=== PATIENT | male | born 1945 | race Caucasian/White ===

== ENCOUNTER → 2017-01-03 | Outpatient (CLI) | payer MEDICARE, OTHER ==
--- NOTE | 2017-01-04 15:59 | RAD ---
EXAM DESCRIPTION: XR ABDOMEN 1 VIEW (KUB) CLINICAL HISTORY: KIDNEY STONES COMPARISON: February 23, 2016 TECHNIQUE: KUB FINDINGS: There is an unremarkable bowel gas pattern. No obstruction or ileus is evident. No soft tissue masses or unusual calcifications are noted. Previously noted calculus overlying the lower pole left kidney is no longer evident. Age appropriate bony degenerative changes are present. IMPRESSION: Normal examination Electronically signed by: Sohan Ball MD 01/04/2017 3:58 PM CDT
== END ==
LOC: RAD 13:35
PROVIDERS: ATTEND Urology
DX: N20.0 Calculus of kidney (principal)

== ENCOUNTER 2017-08-24 15:21 | Emergency (ER) | payer MEDICARE, OTHER ==
[2017-08-24] MEDS ORDERED: NITROGLYCERIN 0.4 MG 25 EA TAB SL ONE (15:25)
[2017-08-24] MEDS ORDERED: ASPIRIN (CHEWABLE) 81 MG TAB ONE (15:25)
[2017-08-24 15:28] VITALS: TEMP 98.5
[2017-08-24] MEDS: NITROGLYCERIN 0.4 MG 25 EA TAB SL ONE ×3 (15:29→15:51)
[2017-08-24] MEDS ORDERED: ASPIRIN (CHEWABLE) 81 MG TAB PO ONE (15:30)
--- NOTE | 2017-08-24 15:51 | RAD ---
EXAM DESCRIPTION: Chest,1 View CLINICAL HISTORY: chest pain COMPARISON: 10 March 2012 TECHNIQUE: AP portable chest FINDINGS: Mild chronic elevation of the left hemidiaphragm is observed. The lungs are clear. The heart is within range of normal. IMPRESSION: Chronic elevation of left hemidiaphragm is observed. I see no acute cardiopulmonary pathology. Electronically signed by: Eliel Cueto MD 08/24/2017 3:50 PM CDT
--- NOTE | 2017-08-24 15:54 | ED.PDOC ---
History of Present Illness - General Chief Complaint: Chest Pain/UT Stated Complaint: chest pain Time Seen by Provider: 08/24/17 15:51 Source: patient, family Exam Limitations: no limitations - History of Present Illness Initial Comments: PT PRESENTS TO THE ED WITH COMPLAINT OF LEFT SIDED CHEST TIGHTNESS WITH RADIATION DOWN THE LEFT ARM. PT REPORTS THAT PAIN BEGAN APPROXIMATELY 30MINS PRIOR TO ARRIVAL WHILE HE WAS DRIVING. 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 HE STATES THAT PAIN RESOLVED AFTER RESTING. TODAYS PAIN HAS BEEN CONSTANT AND RATES IT AT A 7/10. Timing/Duration: 1/2 hour Severity/Quality: tightness Location: substernal Chest Pain Radiation: arms Activities at Onset: other - DRIVING Prior Chest Pain/Cardiac Workup: thallium scan - A FEW YEARS AGO THAT DEMONSTRATED CARDIAC DISEASE Improving Factors: nothing Nitro Today/Relief: no nitro taken today Aspirin Treatment Today: no aspirin today Associated Symptoms: denies symptoms Allergies/Adverse Reactions: Allergies Codeine Allergy (Intermediate, Unverified 03/26/16 12:20) Other Causes itching Aspirin Adverse Reaction (Verified 03/26/16 12:20) Other tinnitus Home Medications: Ambulatory Orders Simvastatin [Zocor] 40 mg PO DAILY 03/10/12 Dutasteride [Avodart] 0.5 mg PO .Q3DAYS 03/26/16 Ketorolac Tromethamine [Toradol Tabs] 10 mg PO Q6HR PRN #20 tab 03/26/16 Meloxicam 15 mg PO .Q3DAYS 03/26/16 Metoprolol Tartrate 25 mg PO DAILY 08/24/17 Tamsulosin [Flomax] 0.4 mg PO JOHN-OTH-DAY 08/24/17 Review of Systems - Review of Systems Constitutional: Denies: chills, fever EENTM: Denies: blurred vision, double vision Respiratory: Denies: cough, short of breath Cardiology: States: see HPI, chest pain. Denies: palpitations Gastrointestinal/Abdominal: Denies: abdominal pain, nausea, vomiting Musculoskeletal: Denies: back pain, joint swelling Skin: Denies: change in color, lesions Neurological: Denies: headache, paresthesia Endocrine: States: no symptoms reported Hematologic/Lymphatic: States: no symptoms reported Past Medical History (General) - Patient Medical History Hx Seizures: No Hx Stroke: No Hx Asthma: No Hx of COPD: No Hx Cardiac Disorders: Yes - CAD Hx Congestive Heart Failure: No Hx Pacemaker: No Hx Hypertension: Yes Hx Diabetes: No Hx Renal Disease: No - Hx 2 episodes of kidney stones Hx MRSA: No Hx Other - free text: HYPERLIPIDEMIA Surgical History: cholecystectomy, other - Vaccination History Hx Influenza Vaccination: Yes - 2015 Hx Pneumococcal Vaccination: Yes - 2014 - Social History Hx Tobacco Use: No - FORMER Hx Alcohol Use: No Hx Substance Use: No Hx Physical Abuse: No Hx Emotional Abuse: No Family Medical History - Family History Father Living Status: Hx Cardiac Disease: Yes Hx Family Diabetes: Yes Physical Exam - Physical Exam General Appearance: Alert, Well Developed, Well Groomed, Well Hydrated, Well Nourished, Other - APPEARS UNCOMFORTABLE Eyes, Ears, Nose, Throat Exam: PERRL/EOMI, normal ENT inspection Neck: full range of motion, supple Respiratory: lungs clear, normal breath sounds, no respiratory distress Cardiovascular/Chest: regular rate, rhythm, no murmur Gastrointestinal/Abdominal: non tender, soft Neurologic: alert, normal mood/affect, oriented x 3 Skin Exam: normal color, warm/dry Progress - Progress Progress: 08/24/17 16:20 PT REPORTS NO IMPROVEMENT AFTER 3 SL NTG IN THE ED. 08/24/17 16:43 PT REPORTS THAT PAIN IS IMPROVED AFTER 4MG IV MORPHINE BUT NOW COMPLAINS OF NAUSEA. ZOFRAN ORDERED. - EKG/XRAY/CT EKG: Sinus - @64BPM, NL INTERVALS, NL AXIS, no ST T wave changes - NO OLD EKG FOR COMPARISION Departure - Departure Clinical Impression: Chest pain Time of Disposition: 16:44 Disposition: Transfer to Hospital Condition: Fair Departure Forms: ED Discharge - Pt. Copy, Patient Portal Self Enrollment Instructions: DI for Chest Pain Referrals: Carlos Ackerman MD [Primary Care Provider] - 1-2 Weeks Home Medications: Ambulatory Orders Simvastatin [Zocor] 40 mg PO DAILY 03/10/12 Dutasteride [Avodart] 0.5 mg PO .Q3DAYS 03/26/16 Ketorolac Tromethamine [Toradol Tabs] 10 mg PO Q6HR PRN #20 tab 03/26/16 Meloxicam 15 mg PO .Q3DAYS 03/26/16 Metoprolol Tartrate 25 mg PO DAILY 08/24/17 Tamsulosin [Flomax] 0.4 mg PO JOHN-OTH-DAY 08/24/17 Transfer to Outside Facility - Transfer Information Accepting Provider:: DR. GONZALEZ (CDU) Accepting Facility: [facility] Reason for Transfer: required specialist not available - CARDIOLOGY
[2017-08-24] MEDS ORDERED: MORPHINE SULFATE INJ 10 MG/ML VIAL IV ONE (16:31)
[2017-08-24] MEDS ORDERED: ONDANSETRON INJ 4 MG/2 ML VIAL IV ONE (16:39)
[2017-08-24 17:28] VITALS: BP 113/62; O2SAT 93
== END 2017-08-24 17:15 | disposition short-term general hospital (02) ==
LOC: ER 15:21
DX: R07.9 Chest pain, unspecified (principal); I25.10 Atherosclerotic heart disease of native coronary artery without angina pectoris; I10 Essential (primary) hypertension; E78.5 Hyperlipidemia, unspecified; Z87.891 Personal history of nicotine dependence
CPT/HCPCS: 36415; 71045; 80048; 80076; 82550; 82553; 83880; 84484; 85025; 85610; 85730; 93005; J2270; J2405

== ENCOUNTER → 2017-12-12 | Outpatient (CLI) | payer MEDICARE, OTHER ==
--- NOTE | 2017-12-12 14:50 | RAD ---
EXAM DESCRIPTION: XR ABDOMEN 1 VIEW (KUB) CLINICAL HISTORY: KIDNEY STONES COMPARISON: January 03, 2017 TECHNIQUE: KUB FINDINGS: There is an unremarkable bowel gas pattern. No obstruction or ileus is evident. No soft tissue masses or unusual calcifications are noted. No definite renal calculi overlying the either kidney are identified. Age appropriate bony degenerative changes are present. IMPRESSION: Normal examination Electronically signed by: Sohan Ball MD 12/12/2017 2:48 PM CDT
== END ==
LOC: RAD 13:24
PROVIDERS: ATTEND Urology
DX: N20.0 Calculus of kidney (principal)

== ENCOUNTER → 2018-04-17 | Outpatient (CLI) | payer MEDICARE, OTHER ==
--- NOTE | 2018-04-17 16:33 | RAD ---
EXAM DESCRIPTION: KUB CLINICAL HISTORY: 72 years Male, KIDNEY STONES COMPARISON: December 12, 2017 FINDINGS: There are several tiny pelvic calcifications, but no left or right-sided urinary tract calculus is identified. The superior poles of the kidneys are not included. The bowel gas pattern is nonobstructed. No concerning bone lesion. IMPRESSION: No radiographically apparent urinary tract calculus, only slightly limited as described above. Electronically signed by: Deacon King MD 04/17/2018 4:31 PM [facility]
== END ==
LOC: RAD 14:08
PROVIDERS: ATTEND Urology
DX: N20.0 Calculus of kidney (principal)

== ENCOUNTER → 2018-04-27 | Outpatient (CLI) | payer MEDICARE, OTHER | LOC: GMAJ 10:54 | PROVIDERS: ATTEND Family Medicine | DX: E55.9 Vitamin D deficiency, unspecified (principal); Z12.5 Encounter for screening for malignant neoplasm of prostate | CPT/HCPCS: 82306; G0103 ==

== ENCOUNTER 2018-10-11 15:44 | Emergency (ER) | payer MEDICARE, OTHER ==
[2018-10-11] MEDS ORDERED: SODIUM CHLORIDE 0.9% 1000ML 1,000 ML IVS ONE (16:27)
[2018-10-11] MEDS ORDERED: KETOROLAC TROMETHAMINE INJ 30 MG/ML VIAL IV ONE (16:27)
[2018-10-11] MEDS ORDERED: ORPHENADRINE CITRATE 30 MG/ML AMP IM ONE (16:27)
--- NOTE | 2018-10-11 16:32 | ED.PDOC ---
History of Present Illness - General Chief Complaint: Abdominal Pain Time Seen by Provider: 10/11/18 16:20 Source: patient Exam Limitations: no limitations - History of Present Illness Initial Comments: C/O BACK PAIN ONSET 3 DAYS AGO BUT HAS GOTTEN MUCH WORSE TODAY. HX OF KIDNEY STONES. THIS IS IN THE L FLANK BUT IS DIFFERENT IN THAT THERE IS SIGNIFICANT INCREASE IN PAIN WITH MOVEMENT. Timing/Duration: other - 3 DAYS Severity: moderate Improving Factors: nothing Worsening Factors: movement Allergies/Adverse Reactions: Allergies NO KNOWN ALLERGY Allergy (Verified 10/11/18 16:09) Home Medications: Ambulatory Orders Simvastatin [Zocor] 40 mg PO DAILY 03/10/12 Metoprolol Tartrate 25 mg PO DAILY 08/24/17 Tamsulosin [Flomax] 0.4 mg PO JOHN-OTH-DAY 08/24/17 Aspirin [Aspirin Childrens] 81 mg PO DAILY 10/11/18 Cyclobenzaprine HCl [Flexeril] 10 mg PO TID PRN #15 tab 10/11/18 Finasteride [Proscar] 5 mg PO JOHN-OTH-DAY 10/11/18 Gabapentin [Neurontin] 900 mg PO DAILY 10/11/18 Indomethacin 50 mg PO TID PRN #14 cap 10/11/18 raNITIdine HCL [Zantac] 150 mg PO DAILY 10/11/18 Review of Systems - Review of Systems Constitutional: Denies: chills, fever EENTM: States: no symptoms reported Respiratory: Denies: cough, short of breath Cardiology: Denies: chest pain, palpitations Gastrointestinal/Abdominal: Denies: abdominal pain, nausea, vomiting Genitourinary: Denies: dysuria, frequency, hematuria Musculoskeletal: States: back pain. Denies: neck pain Skin: States: no symptoms reported Neurological: States: no symptoms reported Endocrine: States: no symptoms reported Hematologic/Lymphatic: States: no symptoms reported Past Medical History (General) - Patient Medical History Hx Seizures: No Hx Stroke: No Hx Asthma: No Hx of COPD: No Hx Cardiac Disorders: Yes - CAD Hx Congestive Heart Failure: No Hx Pacemaker: No Hx Hypertension: Yes Hx Diabetes: No Hx Renal Disease: No - Hx 2 episodes of kidney stones Hx MRSA: No - Vaccination History Hx Influenza Vaccination: Yes - 2015 Hx Pneumococcal Vaccination: Yes - 2014 - Social History Hx Tobacco Use: No - FORMER Hx Alcohol Use: No Hx Substance Use: No Hx Physical Abuse: No Hx Emotional Abuse: No Family Medical History - Family History Father Living Status: Hx Cardiac Disease: Yes Hx Family Diabetes: Yes Physical Exam - Physical Exam General Appearance: Alert, No apparent distress, Other - UNCOMFORTABLE SECONDARY TO PAIN. Eye Exam: bilateral normal Ears, Nose, Throat: hearing grossly normal, normal ENT inspection Neck: full range of motion, supple Respiratory: lungs clear, normal breath sounds, no respiratory distress Cardiovascular/Chest: regular rate, rhythm, no murmur Gastrointestinal/Abdominal: normal bowel sounds, non tender, soft, no organomegaly, no pulsatile mass Back Exam: normal inspection, no CVA tenderness, no vertebral tenderness, other - SOME L LUMBAR TENDERNESS TO PALPATION BUT DOES HAVE SIGNIFICANT LIMITED ROM PARTICULLARY TRYING TO SIT UP. Extremity: normal range of motion, non-tender, normal inspection Neurologic: no motor/sensory deficits, alert, normal mood/affect, oriented x 3 Skin Exam: normal color, warm/dry Lymphatic: no adenopathy Progress - Progress Progress: 10/11/18 20:03 FEELS BETTER, ROM IMPROVED. MILD TTP L FLANK. Departure - Departure Clinical Impression: Lumbosacral strain Qualifiers: Encounter type: initial encounter Qualified Code(s): S39.012A - Strain of muscle, fascia and tendon of lower back, initial encounter HTN (hypertension) Qualifiers: Hypertension type: essential hypertension Qualified Code(s): I10 - Essential (primary) hypertension Time of Disposition: 20:04 Disposition: Discharge to Home or Self Care Condition: Good Departure Forms: ED Discharge - Pt. Copy, Patient Portal Self Enrollment Instructions: Low Back Pain in Adults Referrals: Carlos Ackerman MD [Primary Care Provider] - 1-2 Weeks Prescriptions: Cyclobenzaprine HCl [Flexeril] 10 mg PO TID PRN #15 tab PRN Reason: Pain Indomethacin 50 mg PO TID PRN #14 cap PRN Reason: Pain Home Medications: Ambulatory Orders Simvastatin [Zocor] 40 mg PO DAILY 03/10/12 Metoprolol Tartrate 25 mg PO DAILY 08/24/17 Tamsulosin [Flomax] 0.4 mg PO JOHN-OTH-DAY 08/24/17 Aspirin [Aspirin Childrens] 81 mg PO DAILY 10/11/18 Cyclobenzaprine HCl [Flexeril] 10 mg PO TID PRN #15 tab 10/11/18 Finasteride [Proscar] 5 mg PO JOHN-OTH-DAY 10/11/18 Gabapentin [Neurontin] 900 mg PO DAILY 10/11/18 Indomethacin 50 mg PO TID PRN #14 cap 10/11/18 raNITIdine HCL [Zantac] 150 mg PO DAILY 10/11/18
[2018-10-11 18:08] VITALS: TEMP 98.2
[2018-10-11 20:11] VITALS: BP 114/68; O2SAT 96
== END 2018-10-11 20:20 | disposition home or self-care (01) ==
LOC: ER 15:44
DX: S39.012A Strain of muscle, fascia and tendon of lower back, initial encounter (principal); I10 Essential (primary) hypertension; I25.10 Atherosclerotic heart disease of native coronary artery without angina pectoris; Z87.442 Personal history of urinary calculi; Z87.891 Personal history of nicotine dependence; Z79.82 Long term (current) use of aspirin; Z79.899 Other long term (current) drug therapy; X58.XXXA Exposure to other specified factors, initial encounter; Y92.9 Unspecified place or not applicable
CPT/HCPCS: 36415; 80053; 81001; 85025; J1885; J2360; J7030

== ENCOUNTER → 2019-04-03 | Outpatient (CLI) | payer MEDICARE, OTHER ==
--- NOTE | 2019-04-03 15:51 | MRI ---
EXAM DESCRIPTION: Lumbar Spine w/o Contrast : Magnetic Resonance Imaging. 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 TECHNIQUE: Multiplanar, multiple standard sequences, non contrast MRI, lumbar spine. FINDINGS: L5-S1: The disc is well visualized on axial T2 series 501, image 3. Minimal disc desiccation with disc space preserved. Tiny posterior midline bulge. Posterior elements: Flavum ligaments and facet joints, are unremarkable. 2 mm grade 1 retrolisthesis. Bilateral moderate foraminal narrowing. Circumscribed hyperintense T1 and T2 hemangioma in the left S1 sacral ala. L4-L5: Disc desiccation with minimal disc space loss. Minimal disc desiccation with posterior disc space minimally decreased. Hyperintense T2-weighted annular fissures in the posterior disc margin. Degenerative hypertrophy of the left posterior elements. Canal patent with mild foraminal narrowing bilaterally. L3-L4: Minimal disc desiccation with disc space preserved. Minimal anterior bulging and endplate ridging. No bulging of the canal with minimal bulging of the bilateral foramina. Hyperintense T2-weighted annular fissures in the posterior disc margin. Canal is patent. Bilateral mild foraminal narrowing. Minimal hypertrophy of the posterior elements. No significant canal narrowing. Mild bilateral foraminal narrowing. Circumscribed hyperintense T1 and T2 hemangioma in the L3 vertebral body. L2-L3: Increased T2 and inversion recovery signal in the anterior half of the disc and also to the left of midline. Endplate reactive changes moderate grade 1 associated with the disc signal. Anterior ridging and disc bulging. Large concavity Schmorl's node superior L3 endplate containing fluid with surrounding marrow edema. Trace retrolisthesis and posterior disc bulge. Posterior elements unremarkable. Canal and foramina are patent. Moderate narrowing of the left foramen and mild narrowing of the right foramen. L1-L2: Disc desiccation with anterior disc space loss, and anterior endplate spurs and disc bulge. Posterior elements unremarkable. Mild foraminal narrowing the canal is patent. T12-L1: Disc space loss and disc desiccation no posterior bulge. Hyperintense circumscribed T1 and T2 object in the T12 vertebral body, probably an active or infarcted hemangioma. No posterior disc bulge. Posterior elements unremarkable. Canal and foramina are patent. Conus terminates just below the disc space. Minimal muscle atrophy. Paravertebral soft tissues paraspinal muscle atrophy. Distal cord normal signal and caliber. Otherwise normal marrow signal in the remaining vertebral bodies and the posterior elements. Vertebral bodies are not compressed at any level. IMPRESSION: 1. Multiple levels of disc desiccation. Annular fissures in the posterior disc margins at several levels. Minimal degenerative hypertrophy in the posterior elements. Several hemangiomas are visualized. 2. Acute spondylosis and Schmorl's node formation at L2-L3 with reactive changes in the endplates and edema in the disc. No canal or foraminal stenosis. Electronically signed by: Jose Ramon Mcintosh MD 04/03/2019 3:50 PM [facility]
== END ==
LOC: MRI 10:42
PROVIDERS: ATTEND Family Medicine
DX: M47.816 Spondylosis without myelopathy or radiculopathy, lumbar region (principal); M51.36 Other intervertebral disc degeneration, lumbar region; M51.46 Schmorl's nodes, lumbar region; D18.09 Hemangioma of other sites; M46.96 Unspecified inflammatory spondylopathy, lumbar region

== ENCOUNTER → 2019-04-16 | Outpatient (CLI) | payer MEDICARE, OTHER ==
--- NOTE | 2019-04-16 15:57 | RAD ---
Procedure: XR ABDOMEN 1 VIEW (KUB) Exam Date: 04/16/2019 Ordering Provider: SPIKE PERRY Clinical Indication: KIDNEY STONES Comparison: 04/17/2018 Findings: Nonobstructive bowel gas pattern. There are no suspicious calcifications. Pelvic phleboliths. There is no acute osseous abnormality. Impression: 1. No urinary tract calcifications identified. Electronically signed by: Oskar Bhatia MD 04/16/2019 3:52 PM [employer]
== END ==
LOC: RAD 14:16
PROVIDERS: ATTEND Urology
DX: N20.0 Calculus of kidney (principal)

== ENCOUNTER → 2019-07-26 | Outpatient (CLI) | payer MEDICARE, OTHER ==
--- NOTE | 2019-07-26 14:54 | MRI ---
EXAM DESCRIPTION: Brain w/o Contrast: MRI. 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 TECHNIQUE: Multiplanar, high-field MRI unit, multiple diffusion sequences, multiple conventional sequences without contrast. FINDINGS: Fluid involving most of the cells of the left mastoid group. Fluid also involving the anterior medial temporal bone anterior to the left IAC and associated vestibulocochlear nerves. This fluid has increased since the prior study. Fluid signal and minimal artifact associated with the inferior posterior aspect of the left frontal lobe similar to the prior study. Postsurgical changes again seen. No mass effect in the cerebellar pontine angles. Bilateral solitary foci of hyperintense FLAIR and T2-weighted signal in the subcortical white matter. Mainly seen in the bilateral frontal lobes anteriorly and the posterior right frontal lobe. No change from the prior study.. No hemorrhage, no cerebral edema, no midline shift.. Normal signal in the bilateral basal ganglia. Normal signal in the brainstem and cerebellar hemispheres. Concordance of the diffusion and non-diffusion sequences with no diffusion restriction. Cortical sulci, ventricles, and other CSF spaces, and the subdural spaces are normally configured for patient's age. Postsurgical changes inferior lateral left frontal lobe as previously described. No effacement or displacement. No midline shift. No extra-axial hemorrhage. Normal flow signal void in the major vessels of the [place], and the venous sinuses. IACs are symmetric bilaterally. Normal signal in the right mastoid air cells. Pituitary gland occupies less than 50% of the sella. Base of the cerebellar tonsils is above the foramen magnum. Minimal mucoperiosteal thickening in several paranasal sinus cavities.. The bony calvarium is intact. IMPRESSION: 1. Post surgical changes in the inferior lateral left frontal lobe with craniotomy of the middle cranial fossa stable since the prior study. Increased fluid in the left mastoid air cells and the left temporal bone abutting the left internal auditory canal since the prior study. No recurrent mass. No mass effect, no hemorrhage, no midline shift. 2. Bilateral subcortical white matter focal signal changes most likely related to cerebral microvascular disease or aging. No significant progression since the prior study. 3. Scattered mild paranasal chronic sinusitis. Electronically signed by: Jose Ramon Mcintosh MD 07/26/2019 2:52 PM CDT
== END ==
LOC: MRI 09:00
PROVIDERS: ATTEND Family Medicine
DX: G44.209 Tension-type headache, unspecified, not intractable (principal); H74.8X2 Other specified disorders of left middle ear and mastoid; R90.82 White matter disease, unspecified; J32.9 Chronic sinusitis, unspecified; Z98.890 Other specified postprocedural states

== ENCOUNTER → 2020-01-16 | Outpatient (CLI) | payer MEDICARE, OTHER | LOC: GMAJ 11:29 | PROVIDERS: ATTEND Family Medicine | DX: R41.9 Unspecified symptoms and signs involving cognitive functions and awareness (principal) ==

== ENCOUNTER → 2020-01-18 | Outpatient (CLI) | payer MEDICARE, OTHER ==
--- NOTE | 2020-01-19 15:29 | MRI ---
EXAM DESCRIPTION: Cervical Spine: MRI. CLINICAL HISTORY: 74 years Male CERVICAL DISC DISORDER AT C-5-C6 COMPARISON: None. TECHNIQUE: Multiplanar, high-field MRI, multiple sequences, non-contrast Cervical spine. FINDINGS: C3-C4: Mild to moderate disc space loss. Trace retrolisthesis. Posterior disc osteophyte margin abutting the cord. Anterior C3 endplate Schmorl's node Mild canal narrowing. Bilateral uncinate spurs larger on the right than left. Moderate right neural foraminal narrowing and mild left neural foraminal narrowing. Facet joints are negative. C4-C5: Disc desiccation and minimal disc space loss. Trace retrolisthesis. Posterior disc osteophyte bulge abutting the cord. Posterior mild ligament thickening. Mild canal narrowing. Facet joints are negative and Bilateral neural foramina are patent. C5-C6: Disc space loss and endplate spondylosis more to the right than the left. Right uncinate spur and neural foraminal stenosis. Mild canal narrowing. Facet joints are negative. Mild narrowing of the left neural foramen. C6-C7: Disc desiccation and minimal disc space loss. Bilateral uncinate spurs. Right posterior disc spur bulge into the canal Bilateral severe foraminal narrowing. Right paracentral moderate canal narrowing. Bilateral facet joints are patent. Circumscribed hyperintense T1 and T2 hemangioma C7 vertebral body. C7-T1 disc desiccation. Left uncinate spur and left intraforaminal disc protrusion with left neural foraminal stenosis. Moderate right neural foraminal narrowing and mild canal narrowing. Facet joints are negative. Normal signal in the C2-C3 disc and T1-T2 disc. with no bulging. Disc spaces preserved. Canal and neural foramina are patent. Facet joints . Spinal alignment minimal kyphosis upper segments. No cord compression or cord edema. Atlantoaxial joint mild arthrosis. Base of the cerebellar tonsils is above the foramen magnum. Paravertebral soft tissues negative. Vertebral bodies are not compressed at any level. Normal marrow signal in the remaining vertebral bodies and the posterior elements. IMPRESSION: 1. Spondylosis at multiple levels with disc desiccation. Uncinate spurs at multiple levels. 2. Bilateral uncinate spurs C3-C4 and spondylosis. Moderate neural foraminal narrowing. Correlate for right C4 radiculopathy. 3. Right neural foraminal stenosis C5-C6 and spondylosis. Correlate for right C6 radiculopathy. 4. Spondylosis disc desiccation and C6-C7. Bilateral uncinate spurs. Bilateral severe foraminal narrowing. Correlation for bilateral C7 radiculopathy. 5. Degenerative foraminal disc protrusion at C7-T1 with left neural foraminal stenosis. Correlate for left C8 radiculopathy. Electronically signed by: Jose Ramon Mcintosh MD 01/19/2020 3:27 PM CDT
== END ==
LOC: MRI 10:13
PROVIDERS: ATTEND Psychiatry & Neurology Neurology
DX: M50.122 Cervical disc disorder at C5-C6 level with radiculopathy (principal); M50.123 Cervical disc disorder at C6-C7 level with radiculopathy; M50.13 Cervical disc disorder with radiculopathy, cervicothoracic region; M48.02 Spinal stenosis, cervical region; M25.78 Osteophyte, vertebrae